=== PATIENT | female | born 1970 | race Caucasian/White ===

== ENCOUNTER 2018-07-07 08:30 | Observation (INO) ==
[2018-07-07] MEDS ORDERED: Morphine Sulfate Inj 8 MG/ML Vial IV.PUSH ONE (09:57)
[2018-07-07 10:22] LABS: Baso # (Auto) 0.1 th/mm3 (0.0-0.2); Baso % (Auto) 1.2 % (0.0-2.0); Eos # (Auto) 0.2 th/mm3 (0.0-0.4); Eos % (Auto) 2.6 % (0.0-4.0); Hematocrit 45.4 % (35.0-46.0); Hemoglobin 15.8 gm/dL (11.6-15.3); Lymph # (Auto) 3.6 th/mm3 (1.0-4.8); Lymph % (Auto) 37.4 % (9.0-44.0); Mean Corpuscular HGB Conc 34.7 % (32.0-36.0); Mean Corpuscular Hemoglobin 29.6 pg (27.0-34.0); Mean Corpuscular Volume 85.2 fL (80.0-100.0); Mean Platelet Volume 8.8 fL (7.0-11.0); Mono # (Auto) 0.6 th/mm3 (0.0-0.9); Mono % (Auto) 6.1 % (0.0-8.0); Neut % (Auto) 52.7 % (16.0-70.0); Platelet Count 256 th/mm3 (150-450); Red Blood Count 5.33 mil/mm3 (4.00-5.30); Red Cell Distribution Width 13.8 % (11.6-17.2); White Blood Count 9.6 th/mm3 (4.0-11.0)
--- NOTE | 2018-07-07 10:25 | ED ---
HPI General Chief complaint: Chest Pain Stated complaint: Headache/chest pain/SOB complaint Time Seen by Provider: 07/07/18 09:40 History of Present Illness HPI narrative: Patient is a 48-year-old female presents emergency department for evaluation of chest pain in the middle of her chest radiating down her left arm. No shortness of breath no abdominal pain nausea vomiting. Patient states she was here yesterday for a headache, she left without being seen, she states still with a headache this morning she decided to come back and on her way here she started developing chest pain. 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 States the headache is fairly mild but the chest pain is moderate. Related Data Home Medications Medication Instructions Recorded Confirmed albuterol sulfate 1 puff INHALATION Q4-6H PRN 05/29/18 07/07/18 amlodipine 10 mg PO DAILY 05/29/18 07/07/18 clopidogrel 75 mg PO DAILY 05/29/18 07/07/18 dextroamphetamine-amphetamine 20 mg PO BID 05/29/18 07/07/18 [Adderall] escitalopram oxalate 20 mg PO DAILY 05/29/18 07/07/18 levothyroxine 112 mcg PO DAILY 05/29/18 07/07/18 losartan 100 mg PO DAILY 05/29/18 07/07/18 lovastatin 20 mg PO QPM 05/29/18 07/07/18 meclizine 25 mg PO BID PRN 05/29/18 07/07/18 nitroglycerin 0.4 mg SUBLINGUAL Q5-15M PRN 05/29/18 07/07/18 ziprasidone HCl 80 mg PO BID 05/29/18 07/07/18 Allergies Allergy/AdvReac Type Severity Reaction Status Date / Time aspirin Allergy Hives Verified 07/07/18 09:46 cephalexin [From Keflex] Allergy Nausea/Vomi Verified 07/07/18 09:46 ting cyclobenzaprine Allergy Numbness Verified 07/07/18 09:46 [From Flexeril] hydromorphone [From Dilaudid] Allergy Fever Verified 07/07/18 09:46 ibuprofen Allergy Nausea/Vomi Verified 07/07/18 09:46 ting penicillin G Allergy Edema Verified 07/07/18 09:46 tramadol [From Ultram] Allergy Nausea/Vomi Verified 07/07/18 09:46 ting Review of Systems ROS: all other systems reviewed are negative PMFSH Social History Social History Substance History: No History of Abuse Second Hand Smoke Exposure: No Smoking Status: Former smoker Tobacco Type: Cigarettes How Often Do You Have a Drink Containing Alcohol: Never Recent Travel [facility] within the Last 8 Weeks: No Recent Out of Country Travel within the Last 8 Weeks: No Exam Narrative Exam Narrative: GENERAL: Well-developed well-nourished, no obvious distress. Morbidly obese. SKIN: Focused skin assessment warm/dry. HEAD: Atraumatic. Normocephalic. EYES: Pupils equal and round. No scleral icterus. No injection or drainage. ENT: No nasal bleeding or discharge. Mucous membranes pink and moist. NECK: Trachea midline. No JVD. CARDIOVASCULAR: Regular rate and rhythm. No murmur appreciated. 2+ bladder compulsive in all 4 extremities per RESPIRATORY: No accessory muscle use. Clear to auscultation. Breath sounds equal bilaterally. GASTROINTESTINAL: Abdomen soft, non-tender, nondistended. Hepatic and splenic margins not palpable. MUSCULOSKELETAL: No obvious deformities. No clubbing. No cyanosis. No edema. NEUROLOGICAL: Awake and alert and oriented, cranial nerves II through XII are grossly intact and nonfocal, 5 out of 5 strength in all 4 extremities. PSYCHIATRIC: Appropriate mood and affect; insight and judgment normal. Course Initial Documented Vital Signs Temperature 98.4 F 07/07/18 08:53 Pulse Rate 74 07/07/18 08:53 Respiratory Rate 18 07/07/18 08:53 Blood Pressure 168/81 H 07/07/18 08:53 Pulse Oximetry 98 07/07/18 08:53 Last Documented Vital Signs Temperature 97.9 F 07/07/18 11:26 Pulse Rate 80 07/07/18 11:26 Respiratory Rate 18 07/07/18 11:26 Blood Pressure 136/60 07/07/18 11:26 Pulse Oximetry 97 07/07/18 11:26 Medical Decision Making [facility] Narrative Medical decision making narrative: Patient 48-year-old female with a history of coronary artery disease, TIA, she has been without stress test for many years. Patient allergic to aspirin, will give 5 mg of morphine, EKG is reassuring. Pending a negative troponin patient likely for chest pain center observation. Medical Screen Exam Complete: Yes Emergency Medical Condition: Yes Lab Data Result diagrams: 07/07/18 09:50 07/07/18 09:50 Lab Results 07/07/18 07/07/18 Range/Units 09:50 09:50 WBC 9.6 (4.0-11.0) th/mm3 RBC 5.33 H (4.00-5.30) mil/mm3 Hgb 15.8 H (11.6-15.3) gm/dL Hct 45.4 (35.0-46.0) % MCV 85.2 (80.0-100.0) fL MCH 29.6 (27.0-34.0) pg MCHC 34.7 (32.0-36.0) % RDW 13.8 (11.6-17.2) % Plt Count 256 (150-450) th/mm3 MPV 8.8 (7.0-11.0) fL Neut % (Auto) 52.7 (16.0-70.0) % Lymph % (Auto) 37.4 (9.0-44.0) % [place] % (Auto) 6.1 (0.0-8.0) % Eos % (Auto) 2.6 (0.0-4.0) % Baso % (Auto) 1.2 (0.0-2.0) % Neut # (Auto) 5.0 (1.8-7.7) th/mm3 Lymph # (Auto) 3.6 (1.0-4.8) th/mm3 [place] # (Auto) 0.6 (0.0-0.9) th/mm3 Eos # (Auto) 0.2 (0.0-0.4) th/mm3 Baso # (Auto) 0.1 (0.0-0.2) th/mm3 WBC Differential . Differential Comment Auto diff final Sodium 140 (136-145) meq/L Potassium 4.4 (3.5-5.1) meq/L Chloride 104 (98-107) meq/L Carbon Dioxide 30.7 (21.0-32.0) meq/L Anion Gap 5 (5-15) meq/L BUN 12 (7-18) mg/dL Creatinine 0.84 (0.50-1.00) mg/dL Estimated GFR 73 L (>89) mL/min Random Glucose 91 (74-106) mg/dL Calcium 9.2 (8.5-10.1) mg/dL Total Bilirubin 0.4 (0.2-1.0) mg/dL AST 54 H (15-37) U/L ALT 49 (10-53) U/L Alkaline Phosphatase 75 (45-117) U/L Troponin I Less than 0.02 L (0.02-0.05) ng/mL Total Protein 7.7 (6.4-8.2) g/dL Albumin 3.5 (3.4-5.0) g/dL Imaging Data Radiologist's impression: Chest X-Ray 07/07/18 09:56 CONCLUSION: The lungs are clear. Discharge Plan Discharge Disposition Patient Disposition: ED Admit(ED Internal Use Only) Discharge Condition Condition: Stable Discharge Order Discharge Orders: ED Use Only Admit Order (Routine); Ordered 07/07/18 Ordered By: Timothy Dodge Physicians Team ED Provider: Timothy Dodge Primary Care Provider: UNKNOWN, Attending Provider: Yonathan Real Status ED Status: Admitted Observation Patient
--- NOTE | 2018-07-07 10:26 | XR ---
EXAM DATE: 07/07/2018 10:23 AM EST AGE/SEX: 48 years / Female INDICATIONS: Mid chest pain. CLINICAL DATA: This is the patient's initial encounter. Patient reports that signs and symptoms have been present for 1 day and indicates a pain score of 9/10. MEDICAL/SURGICAL HISTORY: Asthma. Hypertension. Chronic obstructive pulmonary disease. Strok e, heart attack. None. COMPARISON: No prior exams available for comparison. FINDINGS: A single AP view of the chest demonstrates the lungs to be symmetrically aerated without evidence of mass, infiltrate or effusion. The cardiomediastinal contours are unremarkable. Osseous structures a re intact. CONCLUSION: The lungs are clear. Electronically signed by: Timothy Harris MD Board Certified Radiologist 07/07/2018 10:25 AM EST
[2018-07-07 10:43] LABS: Alanine Aminotransferase 49 U/L (10-53); Albumin 3.5 g/dL (3.4-5.0); Anion Gap 5 meq/L (5-15); Aspartate Aminotransferase 54 U/L (15-37); Blood Urea Nitrogen 12 mg/dL (7-18); Calcium 9.2 mg/dL (8.5-10.1); Carbon Dioxide 30.7 meq/L (21.0-32.0); Chloride 104 meq/L (98-107); Glomerular Filtration Rate 73 mL/min (>89); Glucose,Random 91 mg/dL (74-106); Potassium 4.4 meq/L (3.5-5.1); Sodium 140 meq/L (136-145)
[2018-07-07 10:47] LABS: Alkaline Phosphatase 75 U/L (45-117); Total Protein 7.7 g/dL (6.4-8.2)
[2018-07-07] MEDS ORDERED: Acetaminophen 500 MG Tablet PO PRN (11:22)
--- NOTE | 2018-07-07 13:41 | P.HPCA ---
History of Present Illness Primary Care Physician: UNKNOWN Chief Complaint: Chest pain History of Present Illness: 48 year old female with history of hypertension, hyperlipidemia, COPD, and CVA presents the emergency room for further evaluation of headache and chest pain. Onset of headache yesterday morning. Endorses history of migraines and discomfort is similar to past migraine headaches. Originally went to the ER yesterday for headache symptoms, stating she left without being seen. Headache persisted all day yesterday into today, although states headache is "only dull now, much better." In regards to chest pain, onset 0730. Location substernal. Characterized as heaviness and burning. No radiation. No associated symptoms of nausea, vomiting, dyspnea, or diaphoresis. Duration 2 hours, however also states duration constant. Hurts to take a deep breath. Severity moderate. No precipitating or relieving factors. Endorses similar pain in the past. States "I reminded me when I had my first MA. Upon further discussion patient had an abnormal stress test leading to a cardiac catheterization and was told she had no blockages. Patient is a poor historian and indicates having memory issues from past CVAs. No recent illness, cough, fever, or injury. Past cardiac testing Reports normal cardiac catheterization when she was 44. States cardiac catheterization completed after having an abnormal stress test. States being told she didn't have any blockage, however reports having had a small MA. Social history Known hypertension and hyperlipidemia. No known diabetes. Former smoker 2 pack/day, quit 5 years ago. Denies alcohol or recreational drug use. . Endorses sedentary lifestyle. Recently moved from [place], [place] to [facility] and has not established with a local PCP. Family history Brother in his early 40s MA. - Diagnosis (1) Atypical chest pain (2) Cephalgia (3) Hypertension (4) Hypothyroidism (5) Hyperlipidemia (6) Bipolar disorder Review of Systems All other systems reviewed negative except as stated in HPI PMFSH - History History Provided By: Patient - Medical History Medical History: Medical History (Last Updated 07/07/18 @ 15:06 by BRYAN Cherry) Bipolar disorder Chronic low back pain Degenerative disc disease H/O: hysterectomy Hyperlipidemia Hypertension Hypothyroidism Migraines Morbidly obese Vertigo Asthma COPD (chronic obstructive pulmonary disease) History of CVA (cerebrovascular accident) History of leukemia History of mitral valve prolapse - Surgical History Surgical History: Surgical History (Last Updated 07/07/18 @ 15:06 by BRYAN Cherry) History of tonsillectomy Hx of cholecystectomy - Family History Family History: Family History (Last Updated 07/07/18 @ 15:07 by BRYAN Cherry) Mother Coronary artery disease Brother Myocardial infarction - Tobacco History Second Hand Smoke Exposure: No Smoking Status: Former smoker Tobacco Type: Cigarettes Packs Per Day: 2 Number of Pack Years (if former smoker): 58 (begain smoking age 15) - Alcohol History How Often Do You Have a Drink Containing Alcohol: Never - Substance Use History Substance History: No History of Abuse - Travel History Recent Travel in the [place] Within the Last 8 Weeks: No Recent Travel Out of the Country Within the Last 8 Weeks: No - Immunization History Tetanus Immunization: >5 Years Medications and Allergies Active Medications: Active Medications Acetaminophen (Tylenol) 500 mg PO Q4H PRN PRN Reason: HEADACHE Ondansetron HCl (Zofran Inj) 4 mg IV.PUSH Q6H PRN PRN Reason: NAUSEA Sodium Chloride (Ns Flush) 2 ml IV.FLUSH UNSCH PRN PRN Reason: FLUSH AFTER USING IV ACCESS Last Admin: 07/07/18 10:06 Dose: 2 ml Sodium Chloride (Ns Flush) 2 ml IV.FLUSH BID MAHENDRA Sodium Chloride (Ns Flush) 2 ml IV.FLUSH PRN PRN PRN Reason: FLUSH AFTER USING IV ACCESS Allergies Allergy/AdvReac Type Severity Reaction Status Date / Time aspirin Allergy Hives Verified 07/07/18 09:46 cephalexin [From Keflex] Allergy Nausea/Vomi Verified 07/07/18 09:46 ting cyclobenzaprine Allergy Numbness Verified 07/07/18 09:46 [From Flexeril] hydromorphone [From Dilaudid] Allergy Fever Verified 07/07/18 09:46 ibuprofen Allergy Nausea/Vomi Verified 07/07/18 09:46 ting penicillin G Allergy Edema Verified 07/07/18 09:46 tramadol [From Ultram] Allergy Nausea/Vomi Verified 07/07/18 09:46 ting Home Medications Medication Instructions Recorded Confirmed Type albuterol sulfate 1 puff INHALATION Q4-6H PRN 05/29/18 07/07/18 History amlodipine 10 mg PO DAILY 05/29/18 07/07/18 History clopidogrel 75 mg PO DAILY 05/29/18 07/07/18 History dextroamphetamine-amphetamine 20 mg PO BID 05/29/18 07/07/18 History [Adderall] escitalopram oxalate 20 mg PO DAILY 05/29/18 07/07/18 History levothyroxine 112 mcg PO DAILY 05/29/18 07/07/18 History losartan 100 mg PO DAILY 05/29/18 07/07/18 History lovastatin 20 mg PO QPM 05/29/18 07/07/18 History meclizine 25 mg PO BID PRN 05/29/18 07/07/18 History nitroglycerin 0.4 mg SUBLINGUAL Q5-15M PRN 05/29/18 07/07/18 History ziprasidone HCl 80 mg PO BID 05/29/18 07/07/18 History Exam Vital signs: Vital Signs 07/07/18 08:53 07/07/18 09:56 07/07/18 10:25 Temperature 98.4 F 98.2 F 98.2 F Pulse Rate 74 84 79 Respiratory Rate 18 16 19 Blood Pressure 168/81 H 140/63 143/81 H Pulse Oximetry 98 96 97 07/07/18 11:26 Temperature 97.9 F Pulse Rate 80 Respiratory Rate 18 Blood Pressure 136/60 Pulse Oximetry 97 Intake & Output 07/06/18 07/07/18 07/07/18 18:59 06:59 18:59 Weight 156.036 kg Narrative: GENERAL: Alert WN, WD, NAD, morbidly obese female HEAD: NC, AT EYES: Sclera clear, conjunctiva without injection ENT: Mucous membranes pink and moist, poor dentition CV: RRR, without murmur, rub, gallop, distant heart tones RESP: Diminished lungs throughout bilateral, no crackles, wheeze, rhonchi, symmetrical chest rise, nonlabored, able to speak in full sentences ABD: Soft, NT, ND, no masses, positive bowel tones EXT: Pulses +2x4, no dependent edema MS: Normal tone x4 extremities, nontender, no obvious deformities, range of motion and positioning difficult due to the habitus NEURO: Motor strength 5/5 PSYCH: A+O x3, pleasant affect, appropriate speech, mood. Questionable insight and judgment, poor historian SKIN: Normal turgor, normal texture Results 07/07/18 09:50 02/27/19 09:50 Cardiac Enzymes 07/07/18 Range/Units 09:50 AST 54 H (15-37) U/L Troponin I Less than 0.02 L (0.02-0.05) ng/mL CBC 07/07/18 Range/Units 09:50 WBC 9.6 (4.0-11.0) th/mm3 RBC 5.33 H (4.00-5.30) mil/mm3 Hgb 15.8 H (11.6-15.3) gm/dL Hct 45.4 (35.0-46.0) % Plt Count 256 (150-450) th/mm3 Neut # (Auto) 5.0 (1.8-7.7) th/mm3 Lymph # (Auto) 3.6 (1.0-4.8) th/mm3 [place] # (Auto) 0.6 (0.0-0.9) th/mm3 Eos # (Auto) 0.2 (0.0-0.4) th/mm3 Baso # (Auto) 0.1 (0.0-0.2) th/mm3 Comprehensive Metabolic Panel 07/07/18 Range/Units 09:50 Sodium 140 (136-145) meq/L Potassium 4.4 (3.5-5.1) meq/L Chloride 104 (98-107) meq/L Carbon Dioxide 30.7 (21.0-32.0) meq/L BUN 12 (7-18) mg/dL Creatinine 0.84 (0.50-1.00) mg/dL Calcium 9.2 (8.5-10.1) mg/dL AST 54 H (15-37) U/L ALT 49 (10-53) U/L Alkaline Phosphatase 75 (45-117) U/L Total Protein 7.7 (6.4-8.2) g/dL Albumin 3.5 (3.4-5.0) g/dL Intake and Output 07/06/18 07/07/18 07/07/18 22:59 06:59 14:59 Other: Weight 156.036 kg Patient Weight 07/08/18 06:59 Weight 156.036 kg - Imaging and Cardiology Imaging: Impressions Chest X-Ray 07/07/18 09:56 CONCLUSION: The lungs are clear. EKG interpretations - EKG EKG results cardiology: sinus rhythm, normal axis, normal QRS, normal ST/T Caprini VTE Risk Assessment Caprini VTE Risk Assessment: No/Low Risk (score <= 1) Caprini Risk Assessment Model: Point Value = 1 Point Value = 2 Point Value = 3 Point Value = 5 Age 41-60 Minor surgery BMI > 25 kg/m2 Swollen legs Varicose veins or History of unexplained or recurrent spontaneous Oral contraceptives or hormone replacement Sepsis (< 1 month) Serious lung disease, including pneumonia (< 1 month) Abnormal pulmonary function Acute myocardial infarction Congestive heart failure (< 1 month) History of inflammatory bowel disease Medical patient at bed rest Age 61-74 Arthroscopic surgery Major open surgery (> 45 min) Laparoscopic surgery (> 45 min) Malignancy Confined to bed (> 72 hours) Immobilizing plaster cast Central venous access Age >= 75 History of VTE Family history of VTE Factor V Leiden Prothrombin [id number] Lupus anticoagulant Anticardiolipin antibodies Elevated serum homocysteine Heparin-induced thrombocytopenia Other congenital or acquired thrombophilia Stroke (< 1 month) Elective arthroplasty Hip, pelvis, or leg fracture Acute spinal cord injury (< 1 month) Prophylaxis Regimen: Total Risk Factor Score Risk Level Prophylaxis Regimen 0-1 Low Early ambulation 2 Moderate Order ONE of the following: *Sequential Compression Device (SCD) *Heparin 5000 units SQ BID 3-4 Higher Order ONE of the following medications: *Heparin 5000 units SQ TID *Enoxaparin/Lovenox 40 mg SQ daily (WT < 150 kg, CrCl > 30 mL/min) *Enoxaparin/Lovenox 30 mg SQ daily (WT < 150 kg, CrCl > 10-29 mL/min) *Enoxaparin/Lovenox 30 mg SQ BID (WT < 150 kg, CrCl > 30 mL/min) AND/OR *Sequential Compression Device (SCD) 5 or more Highest Order ONE of the following medications: *Heparin 5000 units SQ TID (Preferred with Epidurals) *Enoxaparin/Lovenox 40 mg SQ daily (WT < 150 kg, CrCl > 30 mL/min) *Enoxaparin/Lovenox 30 mg SQ daily (WT < 150 kg, CrCl > 10-29 mL/min) *Enoxaparin/Lovenox 30 mg SQ BID (WT < 150 kg, CrCl > 30 mL/min) AND *Sequential Compression Device (SCD) Assessment and Plan - Assessment (1) Atypical chest pain Code(s): R07.89 - Other chest pain Status: Acute Plan: Admitted to chest pain center. Continue ruling out ACS with standard chest pain center protocol. Seen and evaluated by Dr. Yonathan Real. Obtain d- dimer. After PE is ruled out plan is to proceed with Lexiscan. Due to patient' s body habitus would benefit from a 2 day study. Further disposition after PE ruled out. (2) Cephalgia Code(s): R51 - Headache Status: Acute Plan: Headache improving. Tylenol 500 mg as needed. (3) Hypertension Code(s): I10 - Essential (primary) hypertension Status: Chronic Plan: Continue to monitor. Continue amlodipine and losartan. (4) Hypothyroidism Code(s): E03.9 - Hypothyroidism, unspecified Status: Chronic (5) Hyperlipidemia Code(s): E78.5 - Hyperlipidemia, unspecified Status: Chronic Plan: Continue lovastatin. (6) Bipolar disorder Code(s): F31.9 - Bipolar disorder, unspecified Status: Chronic Plan: Continue ziprasidone and escitalopram. (2) Cephalgia Qualifiers: Headache type: unspecified Headache chronicity pattern: unspecified pattern Intractability: not intractable Qualified Code(s): R51 - Headache (3) Hypertension Qualifiers: Hypertension type: unspecified Qualified Code(s): I10 - Essential (primary) hypertension (5) Hyperlipidemia Qualifiers: Hyperlipidemia type: unspecified Qualified Code(s): E78.5 - Hyperlipidemia, unspecified (6) Bipolar disorder Qualifiers: Active/Remission status: remission status unspecified Qualified Code(s): F31.9 - Bipolar disorder, unspecified
--- NOTE | 2018-07-07 14:21 | ECG ---
Date Performed: 07/07/2018 Time Performed: 12:48:33 PTAGE: 48 years EKG: Sinus rhythm LOW QRS VOLTAGE IN PRECORDIAL LEADS BORDERLINE ECG PREVIOUS TRACING : 07/07/2018 09.04 Since previous tracing, no significant change noted DOCTOR: Yonathan Real Interpretating Date/Time 07/07/2018 14:19:57
--- NOTE | 2018-07-07 14:21 | ECG ---
Date Performed: 07/07/2018 Time Performed: 09:04:10 PTAGE: 48 years EKG: Sinus rhythm LOW QRS VOLTAGE IN PRECORDIAL LEADS BORDERLINE ECG NO PREVIOUS TRACING DOCTOR: Yonathan Real Interpretating Date/Time 07/07/2018 14:20:08
[2018-07-07 14:30] LABS: Creatine Kinase 92 U/L (26-192)
[2018-07-07 16:23] LABS: Creatine Kinase 87 U/L (26-192)
[2018-07-07] MEDS: amLODIPine 10 MG Tablet PO SCH (16:51)
[2018-07-07] MEDS: Levothyroxine 112 MCG Tablet PO SCH (16:52)
[2018-07-07] MEDS ORDERED: Acetaminophen 500 MG Tablet PO ONE (17:00)
[2018-07-07] MEDS ORDERED: Regadenoson Inj 0.4 MG/5 ML Syringe IV.PUSH ONE (17:00)
[2018-07-07] MEDS: Amphetamine/Dextroamphetamine 20 MG Tablet PO SCH (21:37)
[2018-07-08 00:39] VITALS: RESP 18
[2018-07-08] MEDS: Levothyroxine 112 MCG Tablet PO SCH (06:45)
[2018-07-08] MEDS: Amphetamine/Dextroamphetamine 20 MG Tablet PO SCH (10:26)
[2018-07-08] MEDS: amLODIPine 10 MG Tablet PO SCH (10:26)
--- NOTE | 2018-07-08 10:26 | NM ---
EXAM DATE: 07/08/2018 10:05 AM EST AGE/SEX: 48 years / Female INDICATIONS:Angina. . Mid chest pain for one day. CLINICAL DATA: This is the patient's initial encounter. Patient reports that signs and symptoms have been present for 1 day and indicates a pain score of 4/10. MEDICAL/SURGICAL HISTORY: Chronic obstructive pulmonary disease. Hypertension. Asthma. Hyster ectomy. Cholecystectomy. COMPARISON: No prior exams available for comparison. No external comparison. DOSE: 30.0 mCi Tc 99m Myoview at rest 30.8 mCi [id number] at stress 0.4 mg Lexiscan STRESS SYMPTOMS: Lightheaded. EJECTION FRACTION: 66 % TECHNIQUE: The patient underwent pharmacologic stress with infusion of prescribed dose. Continuous ECG tracing was monitored during stress. Gated SPECT imaging was performed after stress and conventi onal SPECT imaging was performed at rest. The examination was performed on a SPECT/CT scanner, both attenuation and non-corrected datasets were reviewed. Two day protocol was used. FINDINGS: Distribution: The maximum perfused segment at stress is in the anterolateral wall. Perfusion Study: The pattern of perfusion at stress is within normal limits. Gated Study: There are intact wall motion and wall thickening without hypokinetic or dyskinetic segm ents. The ejection fraction is calculated at 66%. RISK CATEGORY: Low (<1% Annual Mortality Rate) CONCLUSION: 1. Normal wall motion and calculated ejection fraction. 2. No fixed or reversible wall defects to suggest ischemia or infarction. Electronically signed by: Macario Quezada MD Board Certified Radiologist 07/08/2018 10:25 AM EST
[2018-07-08 10:32] VITALS: BP 134/66; PULSE 72; TEMP 98.2; O2SAT 98
--- NOTE | 2018-07-08 11:04 | P.PNCA ---
Subjective Interval history: This patient was seen by Ashley Flanagan and Dr. Real yesterday. She was ruled out for ACS by standard protocol and then underwent Lexiscan which was not completed until this morning. Her scan is negative and her discomfort is resolved. She was seen again this morning by Artie and then by myself to be sure she was comfortable with discharge. Her results were reviewed again and she made it clear that she is most anxious to get out of here and get home. She is therefore discharged per instructions. Medications and Allergies Active Medications: Active Medications Acetaminophen (Tylenol) 500 mg PO Q4H PRN PRN Reason: HEADACHE Albuterol (Albuterol Neb (Prn)) 2.5 mg NEB UNSCH PRN PRN Reason: SHORTNESS OF BREATH/WHEEZING Stop: 07/10/18 16:27 Albuterol (Duoneb Neb (Prn)) 1 ampul NEB UNSCH PRN PRN Reason: SHORTNESS OF BREATH/WHEEZING Stop: 07/10/18 16:27 Amlodipine Besylate (Norvasc) 10 mg PO DAILY [facility] Last Admin: 07/08/18 10:26 Dose: 10 mg Amphetamine/Dextroamphetamine (Adderall) 20 mg PO BID [facility] Last Admin: 07/08/18 10:26 Dose: 20 mg Clopidogrel Bisulfate (Plavix) 75 mg PO DAILY [facility] Last Admin: 07/08/18 10:26 Dose: 75 mg Escitalopram Oxalate (Lexapro) 20 mg PO DAILY [facility] Last Admin: 07/08/18 10:26 Dose: 20 mg Levothyroxine Sodium (Synthroid) 112 mcg PO DAILY@0600 [facility] Last Admin: 07/08/18 06:45 Dose: 112 mcg Losartan Potassium (Cozaar) 100 mg PO DAILY [facility] Last Admin: 07/08/18 10:26 Dose: 100 mg Meclizine HCl (Antivert) 25 mg PO BID PRN PRN Reason: Dizziness Ondansetron HCl (Zofran Inj) 4 mg IV.PUSH Q6H PRN PRN Reason: NAUSEA Pravastatin Sodium (Pravachol) 20 mg PO QPM [facility] Last Admin: 07/07/18 17:07 Dose: 20 mg Sodium Chloride (Ns Flush) 2 ml IV.FLUSH UNSCH PRN PRN Reason: FLUSH AFTER USING IV ACCESS Last Admin: 07/07/18 10:06 Dose: 2 ml Sodium Chloride (Ns Flush) 2 ml IV.FLUSH BID [facility] Last Admin: 07/08/18 10:35 Dose: 2 ml Sodium Chloride (Ns Flush) 2 ml IV.FLUSH PRN PRN PRN Reason: FLUSH AFTER USING IV ACCESS Ziprasidone (Geodon) 80 mg PO BID [facility] Last Admin: 07/08/18 10:26 Dose: 80 mg Allergies Allergy/AdvReac Type Severity Reaction Status Date / Time aspirin Allergy Hives Verified 07/07/18 09:46 cephalexin [From Keflex] Allergy Nausea/Vomi Verified 07/07/18 09:46 ting cyclobenzaprine Allergy Numbness Verified 07/07/18 09:46 [From Flexeril] hydromorphone [From Dilaudid] Allergy Fever Verified 07/07/18 09:46 ibuprofen Allergy Nausea/Vomi Verified 07/07/18 09:46 ting penicillin G Allergy Edema Verified 07/07/18 09:46 tramadol [From Ultram] Allergy Nausea/Vomi Verified 07/07/18 09:46 ting Home Medications Medication Instructions Recorded Confirmed Type albuterol sulfate 1 puff INHALATION Q4-6H PRN 05/29/18 07/07/18 History amlodipine 10 mg PO DAILY 05/29/18 07/07/18 History clopidogrel 75 mg PO DAILY 05/29/18 07/07/18 History dextroamphetamine-amphetamine 20 mg PO BID 05/29/18 07/07/18 History [Adderall] escitalopram oxalate 20 mg PO DAILY 05/29/18 07/07/18 History levothyroxine 112 mcg PO DAILY 05/29/18 07/07/18 History losartan 100 mg PO DAILY 05/29/18 07/07/18 History lovastatin 20 mg PO QPM 05/29/18 07/07/18 History meclizine 25 mg PO BID PRN 05/29/18 07/07/18 History nitroglycerin 0.4 mg SUBLINGUAL Q5-15M PRN 05/29/18 07/07/18 History ziprasidone HCl 80 mg PO BID 05/29/18 07/07/18 History Physical Exam Vital signs: Vital Signs 07/07/18 11:26 07/07/18 16:00 07/07/18 20:00 Temperature 97.9 F 98.6 F 97.6 F Pulse Rate 80 77 71 Respiratory Rate 18 18 22 Blood Pressure 136/60 149/74 H 116/64 Pulse Oximetry 97 96 92 L 07/08/18 00:00 07/08/18 00:41 07/08/18 01:07 Temperature 97.7 F 97.7 F Pulse Rate 69 63 64 Respiratory Rate 18 18 Blood Pressure 100/63 119/79 Pulse Oximetry 93 L 96 07/08/18 08:00 07/08/18 10:31 Temperature 98.2 F Pulse Rate 72 Respiratory Rate 18 Blood Pressure 134/66 Pulse Oximetry 98 98 Intake & Output 07/07/18 07/08/18 07/08/18 18:59 06:59 18:59 Intake Total 750 / 750 240 / 240 Balance 750 / 750 240 / 240 Weight 164 kg Intake: Oral 750 / 750 240 / 240 Other: # Voids 2 1 Date of Last Bowel Movement 07/06/18 07/08/18 # Bowel Movements 1 Weight On Admission 164 kg Results 07/07/18 09:50 07/07/18 09:50 Cardiac Enzymes 07/07/18 07/07/18 07/07/18 Range/Units 09:50 12:55 15:24 AST 54 H (15-37) U/L Troponin I Less than 0.02 L Less than 0.02 L Less than 0.02 L (0.02-0.05) ng/mL CBC 07/07/18 Range/Units 09:50 WBC 9.6 (4.0-11.0) th/mm3 RBC 5.33 H (4.00-5.30) mil/mm3 Hgb 15.8 H (11.6-15.3) gm/dL Hct 45.4 (35.0-46.0) % Plt Count 256 (150-450) th/mm3 Neut # (Auto) 5.0 (1.8-7.7) th/mm3 Lymph # (Auto) 3.6 (1.0-4.8) th/mm3 Smyth # (Auto) 0.6 (0.0-0.9) th/mm3 Eos # (Auto) 0.2 (0.0-0.4) th/mm3 Baso # (Auto) 0.1 (0.0-0.2) th/mm3 Comprehensive Metabolic Panel 07/07/18 Range/Units 09:50 Sodium 140 (136-145) meq/L Potassium 4.4 (3.5-5.1) meq/L Chloride 104 (98-107) meq/L Carbon Dioxide 30.7 (21.0-32.0) meq/L BUN 12 (7-18) mg/dL Creatinine 0.84 (0.50-1.00) mg/dL Calcium 9.2 (8.5-10.1) mg/dL AST 54 H (15-37) U/L ALT 49 (10-53) U/L Alkaline Phosphatase 75 (45-117) U/L Total Protein 7.7 (6.4-8.2) g/dL Albumin 3.5 (3.4-5.0) g/dL Intake and Output 07/07/18 07/08/18 07/08/18 22:59 06:59 14:59 Intake Total 750 / 750 240 / 240 Balance 750 / 750 240 / 240 Intake: Oral 750 / 750 240 / 240 Other: # Voids 2 1 Date of Last Bowel Movement 07/06/18 07/08/18 # Bowel Movements 1 - Imaging and Cardiology Imaging: Impressions Myocardial Perfusion Scan Nuc Med 07/07/18 00:00 CONCLUSION: 1. Normal wall motion and calculated ejection fraction. 2. No fixed or reversible wall defects to suggest ischemia or infarction. Chest X-Ray 07/07/18 09:56 CONCLUSION: The lungs are clear. Assessment and Plan - Assessment (1) Atypical chest pain Code(s): R07.89 - Other chest pain Status: Acute Plan: Admitted to chest pain center. Continue ruling out ACS with standard chest pain center protocol. Seen and evaluated by Dr. Yonathan Real. Obtain d- dimer. After PE is ruled out plan is to proceed with Lexiscan. Due to patient' s body habitus would benefit from a 2 day study. Further disposition after PE ruled out. (2) Cephalgia Code(s): R51 - Headache Status: Acute Plan: Headache improving. Tylenol 500 mg as needed. (3) Hypertension Code(s): I10 - Essential (primary) hypertension Status: Chronic Plan: Continue to monitor. Continue amlodipine and losartan. (4) Hypothyroidism Code(s): E03.9 - Hypothyroidism, unspecified Status: Chronic (5) Hyperlipidemia Code(s): E78.5 - Hyperlipidemia, unspecified Status: Chronic Plan: Continue lovastatin. (6) Bipolar disorder Code(s): F31.9 - Bipolar disorder, unspecified Status: Chronic Plan: Continue ziprasidone and escitalopram. (2) Cephalgia Qualifiers: Headache type: unspecified Headache chronicity pattern: unspecified pattern Intractability: not intractable Qualified Code(s): R51 - Headache (3) Hypertension Qualifiers: Hypertension type: unspecified Qualified Code(s): I10 - Essential (primary) hypertension (5) Hyperlipidemia Qualifiers: Hyperlipidemia type: unspecified Qualified Code(s): E78.5 - Hyperlipidemia, unspecified (6) Bipolar disorder Qualifiers: Active/Remission status: remission status unspecified Qualified Code(s): F31.9 - Bipolar disorder, unspecified
--- NOTE | 2018-07-08 12:23 | ECG ---
Date Performed: 07/07/2018 Time Performed: 15:45:14 PTAGE: 48 years EKG: Sinus rhythm LOW QRS VOLTAGE IN PRECORDIAL LEADS BORDERLINE ECG No significant change PREVIOUS TRACING : 07/07/2018 12.48 DOCTOR: Sandro Rasheed Interpretating Date/Time 07/08/2018 12:20:41
--- NOTE | 2018-07-08 12:27 | TR ---
Date Performed: 07/08/2018 Time Performed: 09:03:42 DOCTOR: Sandro Rasheed DRUG LIST: CLINICAL HISTORY: REASON FOR TEST: CHEST PAIN REASON FOR ENDING: OBSERVATION: CONCLUSION: Lexiscan stress test was performed under standard four minute protocol. Radionuclide was injected one minute prior to ending the test. No electrocardiographic abormalities were present to suggest ischemia. Nuclear imaging and interpretation are pending. COMMENTS:
== END 2018-07-08 11:19 | disposition home or self-care (01) ==
LOC: NEPE 08:30 → NEDA 08:30 → NEPHCDU 13:42
PROVIDERS: ADMIT Internal Medicine Cardiovascular Disease; ATTEND Internal Medicine Cardiovascular Disease
DX: M54.5 Low back pain; Z79.890 Hormone replacement therapy; I25.10 Atherosclerotic heart disease of native coronary artery without angina pectoris; Z79.899 Other long term (current) drug therapy; R94.39 Abnormal result of other cardiovascular function study; J44.9 Chronic obstructive pulmonary disease, unspecified; Z87.891 Personal history of nicotine dependence; Z88.6 Allergy status to analgesic agent; I25.2 Old myocardial infarction; I10 Essential (primary) hypertension; E78.5 Hyperlipidemia, unspecified; E03.9 Hypothyroidism, unspecified; Z79.02 Long term (current) use of antithrombotics/antiplatelets; G89.29 Other chronic pain; G43.909 Migraine, unspecified, not intractable, without status migrainosus; Z86.73 Personal history of transient ischemic attack (TIA), and cerebral infarction without residual deficits; E66.01 Morbid (severe) obesity due to excess calories; R07.89 Other chest pain; F31.9 Bipolar disorder, unspecified; R42 Dizziness and giddiness; Z90.710 Acquired absence of both cervix and uterus; Z85.6 Personal history of leukemia; I34.1 Nonrheumatic mitral (valve) prolapse
CPT/HCPCS: 71010; 71045; 78452; 80053; 82550; 84484; 85025; 85379; 90774; 90784; 93005; 93017; 96374; 99285; A9502; C8952; G0378; J2270; J2785; Q9969